=== PATIENT | female | born 1940 | race Caucasian/White ===

== ENCOUNTER 2019-04-06 13:46 | Inpatient (IN) ==
--- NOTE | 2019-04-06 14:18 | PROVIDER DOCUMENTATION ---
HPI-Neurological Disorder - General Chief Complaint: Stroke-Like Symptoms Stated Complaint: STROKE LIKE SYMPTOMS Time Seen by Provider: 04/06/19 14:11 Source: patient Allergies/Adverse Reactions: Patient Allergies Allergy/AdvReac Type Severity Reaction Status Date / Time gabapentin [From Neurontin] Allergy Unknown Verified 10/12/15 08:17 Home Medications: Home Medication List Medication Instructions Recorded Confirmed Last Taken Type Allopurinol 100 mg PO QHS 10/12/15 10/13/15 10/12/15 History Amitriptyline [Elavil] 2 tab PO HS 10/12/15 10/13/15 10/12/15 History Aspirin 81 mg PO BID 10/12/15 10/13/15 10/12/15 History Dexlansoprazole [Dexilant] 60 mg PO DAILY 10/12/15 10/13/15 10/12/15 History Diphenoxylate/Atropine [Lomotil] 1 each PO TID 10/12/15 10/13/15 10/06/15 History Dipyridamole [Persantine] 75 mg PO BID 10/12/15 10/13/15 10/12/15 History Fish Oil/Dha/Epa [Fish Oil 1,200 1 each PO DAILY 10/12/15 10/13/15 10/12/15 History mg Fish Oil] Furosemide 80 mg PO DAILY 10/12/15 10/13/15 10/12/15 History Levocetirizine Dihydrochloride 5 mg PO QHS 10/12/15 10/13/15 10/12/15 History [Xyzal] Levothyroxine [Synthroid] 125 microgm PO DAILY 10/12/15 10/13/15 10/12/15 History Meloxicam [Mobic] 7.5 mg PO DAILY 10/12/15 10/13/15 10/12/15 History Montelukast Sodium [Singulair] 10 mg PO DAILY 10/12/15 10/13/15 10/12/15 History Potassium Chloride [Klor-Con M20] 2 tab PO DAILY 10/12/15 10/13/15 10/11/15 History Pramipexole [Mirapex] 0.5 mg PO DAILY 10/12/15 10/13/15 10/12/15 History Primidone 50 mg PO BID 10/12/15 10/13/1516 History RAMIpril [Altace] 5 mg PO DAILY 10/12/15 10/13/15 10/12/15 History Ropinirole [Requip] 1 mg PO DIRECTED 10/12/15 10/13/15 Unknown History Tramadol HCl 2 tab PO TID 10/12/15 10/13/15 10/12/15 History Vitamin E 400 unit PO DAILY 10/12/15 10/13/15 10/12/15 History - History of Present Illness-Neuro Nature of Presenting Problem: 79 YO F sent here by her PCP for episode of aphasia at 1330 that has since resolved. on exam, pt is NAD and speaking well. No neuro deficits at this time. Denies any pain currently. Timing: reports: gone now Review of Systems - Adult - REVIEW OF SYSTEMS - ADULT Constitutional: denies: chills, fever Eyes: reports: no symptoms reported. denies: blurred vision, double vision Ears, Nose, Mouth & Throat: reports: no symptoms reported Cardiovascular: reports: no symptoms reported Respiratory: reports: no symptoms reported Gastrointestinal: reports: no symptoms reported Genitourinary: reports: no symptoms reported Musculoskeletal: reports: no symptoms reported Integumentary: reports: no symptoms reported Neurological: reports: other (aphasia) Past History - Adult - PAST MEDICAL HISTORY-ADULT Review of Records: reports: Social history reviewed & non-contributory. Cardiovascular: reports: HTN Respiratory: reports: denies history Gastrointestinal: reports: GERD Neurological: reports: CVA. denies: stroke deficits Endocrine/Immune: reports: thyroid disorder - PRIOR SURGERIES/PROCEDURES Surgical/Procedure History: denies: recent surgery - FAMILY HISTORY Family History: reviewed, not pertinent, other (GOUT) - SOCIAL HISTORY Smoking: denies Substance Use: denies Living Situation: alone Physical Exam- Neurological - Physical Exam-Neuro Initial Vital Signs Reviewed: Yes General Appearance: appears well, alert, no apparent distress Eye Exam: bilateral eye: normal inspection, PERRL, EOMI HENMT: normocephalic/atraumatic, moist mucous membranes, normal ENT inspection Head Injury: no evidence of injury Neck: non-tender, full range of motion, supple Respiratory: lungs clear, normal breath sounds, no pleuratic chest pain, no respiratory distress Cardiovascular: regular rate, rhythm, no edema Abdominal Exam: non tender, soft. negative: hernia, mass Extremity: normal range of motion, non-tender, normal inspection, no pedal edema make ready mechanic Exam: normal hearing, normal speech, PERRL Coordination/Gait: normal finger to nose, negative Romberg's sign Motor/Sensory: no motor deficit, no sensory deficit, no pronator drift Neurologic: make ready mechanic II-XII nml as tested, no motor/sensory deficits. negative: aphasia, facial droop, focal weakness, motor weakness, sensory deficit Integumentary: normal color, normal turgor, warm/dry Psych/Mental Status: normal mood/affect, oriented x 3 - Glascow Coma Scale Best Eye Response: (4) open spontaneously Best Verbal Response: (5) oriented Best Motor Response: (6) obeys commands Progress - PLAN OF CARE/RESULTS Progress/Plan/Lab Results: Vital Signs - 8 hr 04/06/19 13:49 04/06/19 14:05 Temperature 97.5 F L Pulse Rate 90 91 H Respiratory Rate 18 24 Blood Pressure 160/69 159/75 O2 Sat by Pulse Oximetry 100 98 Laboratory Results - last 24 hr 04/06/19 04/06/19 04/06/19 13:55 14:50 14:50 WBC RBC Hgb Hct MCV MCH MCHC RDW Std Deviation Plt Count MPV Immature Gran % (Auto) Neut % (Auto) Lymph % (Auto) [place] % (Auto) Eos % (Auto) Baso % (Auto) Immature Gran # (Auto) Neut # (Auto) Lymph # (Auto) [place] # (Auto) Eos # (Auto) Baso # (Auto) PT 13.6 INR 1.03 PTT (Actin FS) 21.4 L Sodium Potassium Chloride Carbon Dioxide Anion Gap BUN Creatinine Estimated GFR/1.73 m2 BUN/Creatinine Ratio Glucose POC Glucose 73 Calculated Osmolality Calcium Total Bilirubin AST ALT Alkaline Phosphatase Total Protein Albumin Globulin Albumin/Globulin Ratio TSH Urine Source Urine Color Urine Turbidity Urine pH Ur Specific [place] Urine Protein Ur Glucose (Stick) Ur Ketones (Stick) Urine Blood Urine Nitrite Urine Bilirubin Urobilinogen Dipstick Urine Leukocytes Urine WBC (Auto) Urine RBC (Auto) U Epithel Cells (Auto) Urine Bacteria (Auto) 04/06/19 04/06/19 04/06/19 14:50 14:50 14:50 WBC 5.63 RBC 4.13 L Hgb 12.5 Hct 38.5 MCV 93.2 MCH 30.3 MCHC 32.5 L RDW Std Deviation 12.9 Plt Count 182 MPV 11.6 H Immature Gran % (Auto) 0.0 Neut % (Auto) 70.2 Lymph % (Auto) 16.2 L [place] % (Auto) 6.9 Eos % (Auto) 6.2 Baso % (Auto) 0.5 Immature Gran # (Auto) 0.00 Neut # (Auto) 3.95 Lymph # (Auto) 0.91 L [place] # (Auto) 0.39 Eos # (Auto) 0.35 Baso # (Auto) 0.03 PT INR PTT (Actin FS) Sodium 140 Potassium 4.0 Chloride 101 Carbon Dioxide 25 Anion Gap 14 BUN 37 H Creatinine 1.1 H Estimated GFR/1.73 m2 48 BUN/Creatinine Ratio 34 Glucose 93 POC Glucose Calculated Osmolality 288 Calcium 9.3 Total Bilirubin 0.19 L AST 14 ALT 13 Alkaline Phosphatase 129 H Total Protein 6.3 Albumin 4.1 Globulin 2.2 Albumin/Globulin Ratio 1.9 TSH 0.35 Urine Source Urine Color Urine Turbidity Urine pH Ur Specific [place] Urine Protein Ur Glucose (Stick) Ur Ketones (Stick) Urine Blood Urine Nitrite Urine Bilirubin Urobilinogen Dipstick Urine Leukocytes Urine WBC (Auto) Urine RBC (Auto) U Epithel Cells (Auto) Urine Bacteria (Auto) 04/06/19 15:18 WBC RBC Hgb Hct MCV MCH MCHC RDW Std Deviation Plt Count MPV Immature Gran % (Auto) Neut % (Auto) Lymph % (Auto) [place] % (Auto) Eos % (Auto) Baso % (Auto) Immature Gran # (Auto) Neut # (Auto) Lymph # (Auto) [place] # (Auto) Eos # (Auto) Baso # (Auto) PT INR PTT (Actin FS) Sodium Potassium Chloride Carbon Dioxide Anion Gap BUN Creatinine Estimated GFR/1.73 m2 BUN/Creatinine Ratio Glucose POC Glucose Calculated Osmolality Calcium Total Bilirubin AST ALT Alkaline Phosphatase Total Protein Albumin Globulin Albumin/Globulin Ratio TSH Urine Source CLEAN CATCH Urine Color STRAW Urine Turbidity CLEAR Urine pH 6.0 Ur Specific [place] 1.008 Urine Protein NEGATIVE Ur Glucose (Stick) NEGATIVE Ur Ketones (Stick) NEGATIVE Urine Blood NEGATIVE Urine Nitrite NEGATIVE Urine Bilirubin NEGATIVE Urobilinogen Dipstick NORMAL Urine Leukocytes TRACE A Urine WBC (Auto) <10 Urine RBC (Auto) <10 U Epithel Cells (Auto) <10 Urine Bacteria (Auto) NEGATIVE Orders Category Date Time Status Cardiac Monitoring DIRECTED Care 04/06/19 14:[address] HEAD W/O CONTRAST [CT] Stat Exams 04/06/19 14:16 Completed CBC WITH ELECTRONIC DIFF [HEME] Stat Lab 04/06/19 14:50 Completed COMPREHENSIVE METABOLIC PANEL [CHEM] Stat Lab 04/06/19 14:50 Completed PROTIME WITH INR [COAG] Stat Lab 04/06/19 14:50 Completed PTT [COAG] Stat Lab 04/06/19 14:50 Completed TSH Stat Lab 04/06/19 14:50 Completed URINALYSIS W/POSS RFLX CULT [URINALYSIS] Stat Lab 04/06/19 15:18 Completed EKG [EKG] Stat Ther 04/06/19 14:19 Draft labs reviewed and ok. CT neg. will admit for TIA workup. Result Diagrams: 04/06/19 14:50 04/06/19 14:50 - CONSULTS/PCP/HOSPITALIST Notification #1 *Consult/PCP/Hospitalist*: Hospitalist Time Discussed: 16:32 Consult Disposition: Will see in ED, Admit Departure - Departure Date of Disposition Decision: 04/06/19 Time of Disposition Decision: 16:32 DIAGNOSIS: Aphasia Disposition: ADMITTED INPATIENT 09 Certified Medical Emergency: Emergent Condition: Stable Referrals and Follow-Ups: Brice Tejada MD [Primary Care Provider] - - Critical Care Note This patient required my direct & personal management of CC.: No Attestation - Physician/ MIN Attestation The physician spent face to face time with patient:: Yes Advanced Practice Provider documentation review:: Supervising physician onsite and consulted in the evaluation and care of this patient. The physician did have a face to face encounter with the patient.
[2019-04-06 15:04] LABS: BASO# 0.03 X1000 (0.0-0.2); BASO% 0.5 % (0.0-0.8); EOS# 0.35 X1000 (0.0-0.7); EOS% 6.2 % (0.0-10.0); HEMATOCRIT 38.5 % (37.0-47.0); HEMOGLOBIN 12.5 g/dL (12.0-16.0); LYMPH# 0.91 X1000 (1.2-3.4); LYMPH% 16.2 % (20.5-51.1); MCH 30.3 PG (27-31); MCHC 32.5 g/dL (33-37); MCV 93.2 FL (81-99); MONO# 0.39 X1000 (0.11-0.59); MONO% 6.9 % (1.7-9.3); MPV 11.6 FL (7.4-10.4); NEUT# 3.95 X1000 (1.4-6.5); NEUT% 70.2 % (42.2-75.2); PLT 182 X1000 (130-400); RBC 4.13 XMIL (4.2-5.4); RDW 12.9 % (11.5-14.5); WBC 5.63 X1000 (4.8-10.8)
[2019-04-06 15:10] LABS: INR 1.03; PROTIME 13.6 Seconds (11.0-16.0)
[2019-04-06 15:22] LABS: ALB/GLOB RATIO 1.9; ALBUMIN 4.1 g/dL (3.5-5.0); CALCIUM 9.3 mg/dL (8.8-10.2); CREATININE 1.1 mg/dL (0.5-0.9); TOTAL BILIRUBIN 0.19 mg/dL (0.20-1.00); TOTAL PROTEIN 6.3 g/dL (6.3-8.3)
[2019-04-06 15:27] LABS: URINE SOURCE CLEAN CATCH
[2019-04-06 15:32] LABS: BILIRUBIN URINE NEGATIVE (NEGATIVE); BLOOD URINE NEGATIVE (NEGATIVE); COLOR STRAW; GLUCOSE URINE NEGATIVE (NEGATIVE); KETONE URINE NEGATIVE (NEGATIVE); LEUKOCYTES URINE TRACE (NEGATIVE); NITRITE URINE NEGATIVE (NEGATIVE); PROTEIN URINE NEGATIVE (NEGATIVE); SP GRAVITY URINE 1.008; TURBIDITY URINE CLEAR (CLEAR); UR EPITHELIAL CELLS <10 /HPF (<10); URINE BACTERIA NEGATIVE /HPF; URINE RBC <10 /HPF (<10); URINE WBC <10 /HPF (<10); UROBILINOGEN URINE NORMAL (NORMAL)
--- NOTE | 2019-04-06 15:49 | EKG Report ---
Test Performed on : 04/06/2019 2:07:29 PM Test Reason : STROKE SX Blood Pressure : / mmHG Vent. Rate : 090 BPM Atrial Rate : 090 BPM P-R Int : 154 ms QRS Dur : 076 ms QT Int : 388 ms P-R-T Axes : 085 023 055 degrees QTc Int : 474 ms Sinus rhythm. with premature atrial complexes. Low voltage QRS Cannot rule out Anterior infarct , age undetermined Abnormal ECG When compared with ECG of 13-OCT-2015 08:20, premature ventricular complexes. are no longer present premature atrial complexes. are now present Unconfirmed Result
--- NOTE | 2019-04-06 15:52 | Diag Imaging Result Doc PS360 ---
EXAM: CT HEAD W/O CONTRAST INDICATION: aphasia TECHNIQUE: This exam was performed using automated exposure control, adjustment of mA or kV according to patient size, and/or use of iterative reconstruction technique. COMPARISON: None. FINDINGS: There is patchy low attenuation in the periventricular and subcortical white matter suggesting mild microangiopathy. There is a coarse chronic appearing calcification associated with the katiana to the right of midline. There is no definite acute infarct given the limited sensitivity of CT versus MRI. There is no discrete intracranial mass, mass effect, or intracranial hemorrhage. The surrounding soft tissues and bony structures are essentially unremarkable. IMPRESSION: Chronic appearing changes as described. No definite acute intracranial pathology by CT. Electronically signed by Meet Johnson 04/06/2019 3:49 PM
[2019-04-06] MEDS ORDERED: ZOFRAN IV PRN (16:50)
[2019-04-06] MEDS ORDERED: TYLENOL PO PRN (16:50)
[2019-04-06] MEDS ORDERED: REQUIP PO ONE (22:26)
--- NOTE | 2019-04-06 22:40 | HISTORY AND PHYSICAL ---
PRIMARY CARE PROVIDERS: Dr. Brice Tejada. ROAD FREIGHT CONDUCTOR: Dr. Daugherty. CHIEF COMPLAINT: Difficulties with expressive aphasia or expressing speech. HISTORY OF PRESENT ILLNESS: Ms. Earline Orona is a 79-year-old female with a medical history of multiple TIAs, possible stroke she states for at least the last few years. She also has a history of hypertension, pulmonary artery hypertension, congestive heart failure, COPD, but never smoked, chronic bilateral lower extremity edema, hypothyroidism. States that over the last 3 days she has had 4 dizzy spells. She felt like maybe the amitriptyline that she was on was causing this. She put a call in for Brice Tejada this morning, her primary, who did returned a phone call around 1 p.m. it was at that time he noticed that she had issues with expressing her speech and he verbalized to her that she would need to call someone to bring her to the hospital or he was going to call an ambulance for her, so she was able to get in touch with her neighbors who then brought her to the hospital. The first CT of the head is negative. We will get an MRI MRA of the brain in the morning. All symptoms have since resolved. She denies any weakness, numbness, or tingling. She does have the occasional headache with these dizzy spells and she currently has a headache at this time and is generalized. PAST MEDICAL HISTORY: 1. Hypertension. 2. Pulmonary artery hypertension. 3. Congestive heart failure. 4. COPD. 5. Chronic bilateral lower extremity edema. 6. Hypothyroidism. 7. GERD. 8. Multiple TIAs for several years. SURGICAL HISTORY: 1. Total hysterectomy. 2. Bladder tack. 3. Bilateral shoulder surgery due to lock up. 4. Right total knee replacement. 5. Cholecystectomy. 6. Appendectomy. 7. Bilateral cataracts and multiple laser surgeries on her eyes. She said a total of 8. SOCIAL HISTORY: Denies tobacco, alcohol or illicit drug use. She is and lives alone. FAMILY HISTORY: Mother had TIAs. She of an NE at age 93. Her sister at the age of 70, but from a NE. Her father from an accident at 62, but he had severe arthritis. ALLERGIES: Neurontin causes her to have agitation. HOME MEDICATIONS: Have not been reconciled yet, but apparently she has been on amitriptyline that is not on this list. So, home medications need to be reconciled. REVIEW OF SYSTEMS: Fourteen point review of systems are complete and all were negative except for those mentioned above in the HPI. PHYSICAL EXAM: VITAL SIGNS: Temperature 97.8 degrees, heart rate 94, respiratory rate 17, blood pressure 143/55, O2 saturation 100% on room air. GENERAL: Ms. Earline Orona is a 79-year-old female. She is in no acute distress. She is able answer questions appropriately. HEENT: Atraumatic, normocephalic. Pupils equal, round, reactive to light. Extraocular movements intact. Mucous membranes are moist. NECK: Trachea midline. CARDIOVASCULAR: S1, S2. Regular rate and rhythm. No rubs, gallops, murmurs. She has 2 to 3+ lower extremity edema. Plus 2 dorsalis pedal pulses, +2 radial pulses. Negative for JVD or carotid bruits. PULMONARY: Clear to auscultation. Bilateral breath sounds. No accessory muscle use or work of breathing noted GI: Soft, nontender, nondistended. Positive bowel sounds x4. EXTREMITIES: Moves all extremities equally. Full range of motion and 5/5 strength. NEURO: A and O x3. Follows commands. Sensory is intact. SKIN: Warm, dry, intact. LABORATORY DATA: White blood cells 5000, hemoglobin 12, hematocrit 38, platelet count 182,000. INR is 1.03, PTT is 21.4. Sodium 140, potassium 4.0, BUN 37, creatinine is 1.1, glucose 93, calcium 9.3, bilirubin 0.19, AST 14, ALT 13, albumin 4.1, TSH 0.35. Urinalysis trace leukocytes. IMAGING: Head CT: Chronic appearing changes, no acute findings. EKG: Sinus rhythm, rate 90, QTc 474. ASSESSMENT AND PLAN: 1. History of multiple transient ischemic attacks, but no true strokes. She is now with symptoms of transient ischemic attack once again. Most time she says they present as dizzy spells which she has had 4 dizzy spells in the last 3 days along with headaches, but today she had expressive aphasia. The length of time of how long it lasted is unclear. Head CT is negative. So we will do a MRI MRA of the brain in the morning and neuro checks. 2. Hypertension. Currently, she is 140s to 150s. Will allow for permissive hypertension in this setting. I believe she does take some medications for her blood pressure at home. These have not been reconciled yet, but currently we are going to hold off on those. 3. Pulmonary artery hypertension. 4. History of reported congestive heart failure with chronic lower extremity edema. 5. Reported chronic obstructive pulmonary disease, but she has never smoked. 6. Hypothyroidism. Once home medications are verified will be able to continue with Synthroid. 7. Gastroesophageal reflux disease. Again, still waiting on home medications and we will get that resumed as well. 8. Deep venous thrombosis prophylaxis. Lovenox. Dictated by TIFF Grace for Paul Toscano MD cc: TIFF Grace MD 79 y/o patient presenting with expressive aphasia. CT brain not remarkable for any acute changes. I agree with the assessment and plan of the DIMENSION SPECIFICATION INSPECTOR. Dr. Toscano. [facility]
[2019-04-06] MEDS: LIPITOR PO SCH (23:10)
[2019-04-07 07:27] LABS: BASO# 0.03 X1000 (0.0-0.2); BASO% 0.6 % (0.0-0.8); EOS# 0.37 X1000 (0.0-0.7); HEMATOCRIT 38.1 % (37.0-47.0); HEMOGLOBIN 12.4 g/dL (12.0-16.0); IMM GRAN# 0.02 X1000 (0.0-0.04); IMM GRAN% 0.4 % (0.0-0.5); LYMPH# 1.01 X1000 (1.2-3.4); LYMPH% 19.1 % (20.5-51.1); MCH 30.1 PG (27-31); MCHC 32.5 g/dL (33-37); MCV 92.5 FL (81-99); MONO% 7.6 % (1.7-9.3); MPV 11.6 FL (7.4-10.4); NEUT# 3.46 X1000 (1.4-6.5); NEUT% 65.3 % (42.2-75.2); PLT 193 X1000 (130-400); RBC 4.12 XMIL (4.2-5.4); RDW 12.7 % (11.5-14.5); WBC 5.29 X1000 (4.8-10.8)
[2019-04-07 08:01] LABS: ALB/GLOB RATIO 1.9; ALBUMIN 4.1 g/dL (3.5-5.0); CALCIUM 9.2 mg/dL (8.8-10.2); FREE T4 1.41 ng/dL (0.93-1.70); TOTAL BILIRUBIN 0.37 mg/dL (0.20-1.00); TOTAL PROTEIN 6.3 g/dL (6.3-8.3); TSH 0.72 uIUmL (0.27-4.20)
[2019-04-07] MEDS ORDERED: ASPIRIN PO SCH (09:00)
[2019-04-07] MEDS ORDERED: LOVENOX SUBQ SCH (09:00)
--- NOTE | 2019-04-07 09:09 | PROGRESS NOTE ---
DATE: 04/07/2019 She presented with difficulty breathing and expressive aphasia. She says that it is completely resolved. Her main complaint right now is her restless legs syndrome. She states that she usually takes Requip 1 mg in the morning, 1 midday, and 2 mg at night. This is a 79-year-old female with a past medical history of TIAs in the past. She was told she was having some mini- strokes. She also has a history of hypertension, pulmonary artery hypertension, congestive heart failure, COPD but never smoked, chronic bilateral extremity edema, hypothyroidism. She states that over the last 3 days, she has had 4 dizzy spells. [place] like maybe the amitriptyline that she was on was causing this. She put in a call for Brice Tejada, her primary care. When he called her, he noticed that she had issues of speech and told her to go to the emergency room. CT of the head was negative. Got an MRI and MRA of the brain, which I think was planned for today. PHYSICAL EXAMINATION: Today, she was sitting up eating breakfast, swallowing fine. She says there is no trouble with her speech. The stated main complaint was her restless legs. Temperature 98.0 degrees, pulse 80, respirations 20, blood pressure 144/61. Pupils are equal and round. Lungs are clear in all lung potter. Cardiovascular Examination: Regular rhythm and rate without murmur or S3. Weight is 179 pounds. Urine output was 1900 mL. Said she had held her aspirin because they were thinking about operating on her hernia after [place] so she had not taken her aspirin in the last couple days. She is on aspirin 81 mg a day, Lipitor 40 mg at bedtime, and we will change the Requip so that she will get 1 mg in the morning, and make sure she is back on her Altace and get her back on her home medications. cc: Shawn Aragon MD
[2019-04-07 09:55] LABS: HEMOGLOBIN A1C 5.7 % (4.8-6.0)
[2019-04-07] MEDS: REQUIP PO ONE ×2 (10:13→10:14)
--- NOTE | 2019-04-07 13:29 | Diag Imaging Result Doc PS360 ---
EXAM: MRI BRAIN W/WO CONTRAST 04/07/2019 HISTORY: stroke TECHNIQUE: T1 sagittal, axial and post gadolinium-enhanced axial with coronal reformation, axial T2, FLAIR, DWI and coronal gradient echo. COMMENT: There are no previous studies available for comparison. There are a few small punctate areas of increased T2-weighted signal intensity in the subcortical white matter of the left posterior frontal and parietal lobes. No evidence of mass effect bleed or abnormal extra-axial fluid collection is present. There is no evidence of restricted diffusion. There is no evidence of abnormal gadolinium enhancement. IMPRESSION: Minimal microvascular white matter changes. No evidence of acute disease. Electronically signed by Lars Juarez 04/07/2019 1:26 PM
--- NOTE | 2019-04-07 13:30 | Diag Imaging Result Doc PS360 ---
EXAM: MRA BRAIN W/O CONTRAST 04/07/2019 HISTORY: stroke TECHNIQUE: 3-D [id number] COMMENT: There is no evidence of aneurysm or major branch occlusions. The P1 segment on the right is somewhat tortuous. No major branch occlusions are present. IMPRESSION: No significant abnormality. Electronically signed by Lars Juarez 04/07/2019 1:28 PM
--- NOTE | 2019-04-07 13:38 | ECHO REPORT ---
ORDER DATE: 04/06/2019 INDICATIONS: Stroke, pulmonary hypertension, CHF, edema. FINDINGS: 1. The right atrium appears normal in size. 2. Mild tricuspid regurgitation. The RV systolic pressure is 49 suggesting pulmonary hypertension. 3. Normal RV size and systolic function. 4. Trace pulmonic insufficiency. 5. Moderate left atrial enlargement with a volume index of 36. 6. No mitral valve prolapse. Mild mitral regurgitation. No evidence of mitral stenosis. 7. Normal LV size and diastolic dimension of 3.9 cm. Normal wall thicknesses with a posterior and interventricular septal wall thickness of 0.9 and 1.0 cm respectively. Normal LV systolic function, estimated EF of 60% with normal wall motion. 8. The aortic valve is calcified with a restriction of motion consistent with mild aortic stenosis, peak gradient of 24, mean of 13. Valve area was 1.8 cm2 by continuity equation. No evidence of aortic insufficiency. 9. The aorta appears normal in visualized segments. 10.No pericardial effusion is identified. 11.There is elevation in the left atrial pressure suggested by increased E/E prime. cc: MD Natalie Aleman CRNP
[2019-04-07] MEDS: LIPITOR PO SCH ×2 (19:51→23:51)
[2019-04-07] MEDS: REQUIP PO SCH ×2 (19:51→23:51)
--- NOTE | 2019-04-07 20:01 | Carotid Study ---
DATE: 04/06/2019 REQUESTING PROVIDER: Freddy. [employer] CAR: Kristian. INDICATION: 1. CVA. 2. Speech problems. PREVIOUS COMPARISON: From 09/16/2015 EQUIPMENT: [employer] Vivid E9 ultrasound system a 9L-D transducer. FINDINGS: Complete diagram ultrasound images can be seen scanned in patient's medical record. The peak systolic velocity noted on the right side is noted to be 97. It is located in the distal internal carotid artery. The peak systolic velocity noted on the left side is also in the distal internal carotid artery is noted to be 137. The calculated internal common ratio on the right is 1.23, left 1.60. Calculated stenosis on the right 0 to 39 percent, left 40 to 59 percent. There appears to be atherosclerosis noted bilateral carotid arteries. This producing a normal to mild stenosis on the right and a moderate stenosis on the left. Both vertebral arteries were antegrade flow. When compared to previous study this essentially unchanged. INTERPRETATION: Normal to mild stenosis noted on the right side of 0 to 39 percent, left side is moderate stenosis of 40 to 59 percent. This appears to be grossly unchanged from previous study. cc: MD Natalie Joseph CRNP
[2019-04-08 07:04] LABS: BASO# 0.03 X1000 (0.0-0.2); BASO% 0.5 % (0.0-0.8); EOS# 0.49 X1000 (0.0-0.7); HEMATOCRIT 38.7 % (37.0-47.0); HEMOGLOBIN 12.6 g/dL (12.0-16.0); LYMPH# 1.17 X1000 (1.2-3.4); LYMPH% 19.2 % (20.5-51.1); MCH 30.2 PG (27-31); MCHC 32.6 g/dL (33-37); MCV 92.8 FL (81-99); MONO# 0.43 X1000 (0.11-0.59); MPV 11.3 FL (7.4-10.4); NEUT# 3.98 X1000 (1.4-6.5); NEUT% 65.3 % (42.2-75.2); PLT 200 X1000 (130-400); RBC 4.17 XMIL (4.2-5.4); RDW 12.8 % (11.5-14.5)
[2019-04-08 07:20] VITALS: BP 145/60
[2019-04-08 07:29] LABS: AGAP 15; ALB/GLOB RATIO 1.9; ALBUMIN 4.1 g/dL (3.5-5.0); ALKALINE PHOSPHATASE 130 U/L (32-104); BUN 26 mg/dL (8-22); CALCIUM 9.5 mg/dL (8.8-10.2); CHLORIDE 102 mmol/L (98-107); COSMO 286; CREATININE 0.8 mg/dL (0.5-0.9); ESTIMATED GFR > 60; GLUCOSE 95 mg/dL (70-104); GOT 15 U/L (10-30); GPT 13 U/L (10-36); SODIUM 141 mmol/L (136-145); TCO2 24 mmol/L (25-35); TOTAL BILIRUBIN 0.32 mg/dL (0.20-1.00); TOTAL PROTEIN 6.3 g/dL (6.3-8.3)
[2019-04-08] MEDS ORDERED: REQUIP PO SCH ×2 (08:30→12:00)
--- NOTE | 2019-04-08 09:18 | DISCHARGE SUMMARY ---
ADMISSION DATE: 04/06/2019 DISCHARGE DATE: 04/08/2019 HOSPITAL COURSE: She is a patient of Dr. Brice Tejada and followed by impregnator helper, Dr. Daugherty. She came in with difficulties with speech, expressive aphasia. A 79-year-old female with past medical history of multiple TIA's, possible CVA in the past. States for the last few years she feels like she has had several little TIA's. Had a history of hypertension, pulmonary artery hypertension, congestive heart failure, COPD but never smoked, chronic bilateral lower extremity edema, hypothyroidism. States that over the last 3 days she has had dizzy spells, felt like maybe the atropine she was on was causing this. She put in a call and saw Dr. Brice Tejada or he called her. At the time, she was having trouble pronouncing words and verbalizing, and so he sent her to the emergency room. PAST MEDICAL HISTORY: 1. Hypertension. 2. Pulmonary artery hypertension. 3. Congestive heart failure. 4. COPD. 5. Chronic bilateral lower extremity edema. 6. Hypothyroidism. 7. Gastroesophageal reflux disease. 8. TIA's for several years. SURGICAL HISTORY: 1. Total hysterectomy. 2. Bladder was tacked. 3. Bilateral shoulder surgery, I think for shoulder cuff repair. 4. Right total knee replacement. 5. Cholecystectomy. 6. Appendectomy. 7. Bilateral cataracts, multiple laser surgeries on her eyes. She has had a total of 8 of these ADMISSION DIAGNOSES: 1. History of multiple transient ischemic attacks, but not sure she has had any true events. At this time, she apparently had some trouble with her speech and forming her words, and presented with what she thought was a dizzy spell. She has had four of these dizzy spells in 4 days leading up to coming in here. 2. Hypertension. Watched her blood pressures; they appear to be under good control. 3. Pulmonary artery hypertension, was aware. 4. Reported congestive heart failure with chronic lower extremity edema. 5. History of chronic obstructive pulmonary disease, but she has never smoked. 6. Hypothyroidism. Continued her current medication. 7. She had a brain MRA and MRI. There was no significant abnormality. Minimal microvascular white matter changes, so really did not see evidence of previous strokes. Her speech resolved, and she had an echocardiogram with Doppler. There is no mural thrombus. The left ventricle appeared to be normal wall thickness, ejection fraction 60%. No pericardial effusion. No significant valvular dysfunction. DISCHARGE DISPOSITION: So, was eating well. She wanted to go home. She told me she had stopped her aspirin as they were thinking about doing a hernia repair on her after the first of the year, but I will continue her on aspirin 81 mg a day, Lipitor 40 mg a day. She takes her Mirapex. She has restless leg syndrome; that is her main complaint, and is to take Mirapex and that is 0.5 mg at bedtime and her Requip 2 mg p.o. at bedtime; I think she takes 1 mg of Requip in the morning and in the mid afternoon. She is on allopurinol 100 mg a day, Elavil. She takes 2 tablets at bedtime, Dexilant 60 mg a day. Takes her Lomotil as needed and Persantine 75 mg p.o. b.i.d., and I believe she could stop her Persantine. She takes Lasix 40 mg p.o. daily. Takes her Xyzal 5 mg at bedtime, Synthroid 175 mcg a day, Singulair 10 mg a day, oxycodone IR 5 mg b.i.d., Klor-Con 21 a day, Mirapex 0.5 mg at bedtime, primidone 50 mg daily, Altace 5 mg b.i.d. cc: Shawn Aragon MD
[2019-04-08] MEDS ORDERED: MIRAPEX PO SCH (21:00)
== END 2019-04-08 09:56 | disposition home or self-care (01) | DRG 92 ==
LOC: ED 13:46 → SUATTDRO 17:33 → 4N 17:33
PROVIDERS: ATTEND Emergency Medicine

== ENCOUNTER 2019-05-20 08:00 | Day surgery (SDC) ==
[2019-05-20] MEDS ORDERED: XYLOCAINE-MPF 2% ONE (08:06)
[2019-05-20] MEDS ORDERED: DIPRIVAN 1% ONE (08:06)
[2019-05-20] MEDS ORDERED: KEFZOL 1 GM/D5W 1 GM/50 ML IVPB ONE (08:27)
[2019-05-20] MEDS ORDERED: LR 1,000 ML ONE (08:27)
[2019-05-20] MEDS ORDERED: REGLAN ONE (08:59)
[2019-05-20] MEDS ORDERED: PEPCID ONE (08:59)
[2019-05-20] MEDS ORDERED: XYLOCAINE 1%/EPI 1:100,000 ONE ×2 (09:04→09:05)
[2019-05-20] MEDS ORDERED: FENTANYL ONE (11:07)
[2019-05-20] MEDS ORDERED: SUFENTA ONE (11:15)
[2019-05-20] MEDS ORDERED: DECADRON ONE (11:34)
[2019-05-20] MEDS ORDERED: ZOFRAN ONE (11:34)
[2019-05-20 12:02] LABS: URINE SOURCE CATH
[2019-05-20 12:08] LABS: BILIRUBIN URINE NEGATIVE (NEGATIVE); BLOOD URINE TRACE (NEGATIVE); COLOR YELLOW; GLUCOSE URINE NEGATIVE (NEGATIVE); KETONE URINE NEGATIVE (NEGATIVE); LEUKOCYTES URINE NEGATIVE (NEGATIVE); NITRITE URINE NEGATIVE (NEGATIVE); PH URINE 6.5; PROTEIN URINE NEGATIVE (NEGATIVE); TURBIDITY URINE CLEAR (CLEAR); UROBILINOGEN URINE NORMAL (NORMAL)
[2019-05-20 12:09] LABS: UR EPITHELIAL CELLS <10 /HPF (<10); URINE BACTERIA NEGATIVE /HPF; URINE RBC <10 /HPF (<10); URINE WBC <10 /HPF (<10)
[2019-05-20] MEDS: MORPHINE ONE ×3 (12:21→12:37)
[2019-05-20] MEDS ORDERED: ATROPINE ONE (12:30)
[2019-05-20] MEDS ORDERED: NORCO-10 ONE (12:42)
[2019-05-20] MEDS ORDERED: D5 1/2 NS 1,000 ML IV SCH (13:30)
[2019-05-20] MEDS ORDERED: NORCO-10 PO PRN (13:30)
[2019-05-20] MEDS ORDERED: LOMOTIL PO PRN (14:00)
[2019-05-20] MEDS ORDERED: DESYREL PO PRN (14:00)
[2019-05-20] MEDS ORDERED: VENTOLIN HFA INH PRN (14:00)
[2019-05-20] MEDS ORDERED: REQUIP PO SCH ×2 (15:30→21:00)
[2019-05-20] MEDS ORDERED: OXY IR PO SCH (17:00)
[2019-05-20] MEDS ORDERED: BACTROBAN OINTMENT TOP SCH (17:00)
[2019-05-20] MEDS ORDERED: ZOVIRAX CREAM TOP SCH (17:00)
--- NOTE | 2019-05-20 19:22 | OPERATIVE NOTE ---
PROCEDURE DATE: 05/20/2019 PREOPERATIVE DIAGNOSIS: Right inguinal hernia. POSTOPERATIVE DIAGNOSIS: Incarcerated right femoral hernia. PROCEDURE: Repair, Bassini type. PROCEDURE IN DETAIL: The patient was brought to the operating room. After satisfactory induction of IV and endotracheal anesthesia, athrombic TEDs and a Levine catheter were placed. The right groin was prepped and draped in the appropriate manner. Palpation of the area revealed reduction of contents in the very medial aspect of the inguinal ring. An oblique incision was made down between anterior iliac spine and pubic tubercle with dissection taken down through skin and subcutaneous tissue. Hemostasis was obtained by electrocautery. The fibers of the external oblique were opened in the pathway of its fibers down to and opening the external inguinal ring. On opening and mobilization of the cord structures, a femoral component was delivered, and then the hernia sac and the contents of the small bowel were reduced and the hernia sac was stapled with a TA-30 stapler. The remaining contents were reduced, and the inguinal ligament and transversalis fascia were anastomosed completely obliterating the defect. On completion, the reconstructed floor appeared to be satisfactory. The wound was irrigated with 10 mL of Xylocaine with epinephrine. The subcutaneous was infiltrated with another 10 mL of Xylocaine with epinephrine. The external oblique was closed with interrupted 3-0 Vicryl as was the subcutaneous tissue. The skin itself was closed with 4-0 Vicryl subcuticular. Steri-Strips, Telfa, and OpSite were applied. Levine catheter was removed. She was awakened and extubated in the operating room and transferred to recovery. ESTIMATED BLOOD LOSS: Around 5 mL. cc: Kip Beavers MD
[2019-05-20] MEDS ORDERED: MYSOLINE PO SCH (21:00)
[2019-05-20] MEDS ORDERED: PERSANTINE PO SCH (21:00)
[2019-05-20] MEDS ORDERED: ZYRTEC PO SCH (21:00)
[2019-05-20] MEDS ORDERED: ZYLOPRIM PO SCH (21:00)
[2019-05-20] MEDS ORDERED: ELAVIL PO SCH (21:00)
[2019-05-20] MEDS ORDERED: MIRAPEX PO SCH (21:00)
[2019-05-20] MEDS ORDERED: FLEXERIL PO SCH (21:00)
[2019-05-20] MEDS ORDERED: PERIDEX MT SCH (21:00)
[2019-05-20] MEDS: REVATIO PO SCH (22:37)
[2019-05-21] MEDS: REVATIO PO SCH (06:38)
[2019-05-21] MEDS ORDERED: SYNTHROID PO SCH (07:00)
[2019-05-21] MEDS ORDERED: SINGULAIR PO SCH (07:00)
[2019-05-21] MEDS ORDERED: DEXILANT PO SCH (07:00)
[2019-05-21 07:42] VITALS: BP 118/45
[2019-05-21] MEDS ORDERED: REQUIP PO SCH ×2 (08:00→12:00)
[2019-05-21] MEDS ORDERED: MYSOLINE PO SCH (09:00)
[2019-05-21] MEDS ORDERED: ALDACTONE PO SCH (09:00)
[2019-05-21] MEDS ORDERED: KLOR-CON PO SCH (09:00)
[2019-05-21] MEDS ORDERED: LASIX PO SCH (09:00)
[2019-05-21] MEDS ORDERED: ZAROXOLYN PO SCH (09:00)
[2019-05-21] MEDS ORDERED: ALTACE PO SCH (09:00)
[2019-05-24] MEDS ORDERED: CYANOCOBALAMIN INJ SCH (09:00)
== END 2019-05-21 09:54 | disposition home or self-care (01) ==
LOC: OPS 08:00 → 4N 08:00 → PAT 08:00 → OPS 05-21 09:54
PROVIDERS: ATTEND Surgery